=== PATIENT | male | born 1975 | race African-American/Black ===

== ENCOUNTER → 2017-07-21 | Outpatient (CLI) | payer BC ==
[2017-07-21 13:01] LABS: Urine Bacteria NONE SEEN /hpf (None Seen); Urine Blood Negative /uL (Negative); Urine Specific Gravity 1.023 (1.001-1.035); Urine WBC 1 /hpf (0 - 3)
[2017-07-21 13:25] LABS: Albumin 3.8 g/dL (3.4-5.0); BUN/Creatinine Ratio 14.3; Bilirubin, Total 0.6 mg/dL (0.2-1.0); Calcium 9.3 mg/dL (8.5-10.1); Total Protein 8.1 g/dL (6.4-8.2)
== END | disposition home or self-care (01) ==
LOC: LAB 11:52
PROVIDERS: ATTEND Internal Medicine
DX: Z00.01 Encounter for general adult medical examination with abnormal findings (principal); R05 Cough
CPT/HCPCS: 36415; 80053; 80061; 81001; 84443

== ENCOUNTER → 2017-07-28 | Outpatient (CLI) | payer BC ==
[2017-07-28 14:45] LABS: Free T4 (Free Thyroxine) 1.41 ng/dL (0.89-1.76); T3 Total 0.85 ng/mL (0.60-1.81)
== END | disposition home or self-care (01) ==
LOC: LAB 13:38
PROVIDERS: ATTEND Internal Medicine
DX: R94.6 Abnormal results of thyroid function studies (principal); I10 Essential (primary) hypertension; Z87.891 Personal history of nicotine dependence
CPT/HCPCS: 84439; 84480

== ENCOUNTER 2018-08-04 16:28 | Inpatient (IN) | payer BC, OTHER ==
[~2018-08-04] VITALS: Ht 188 cm; Wt 103.4 kg
[2018-08-04 17:32] LABS: Basophils # (auto) 0.1 uL; Basophils % (auto) 1.2 % (0.0-2.0); Eosinophils # (auto) 0.1 uL; Eosinophils % (auto) 1.4 % (0.0-7.0); Hematocrit 40.9 % (41.0-53.0); Hemoglobin 13.4 g/dL (13.5-17.5); Lymphocytes # (auto) 1.7 uL; Lymphocytes % (auto) 30.7 % (10.0-50.0); Mean Corpuscular Hemoglobin 27.6 pg (28.0-32.0); Mean Corpuscular Hgb Conc. 32.9 g/dL (32.0-36.0); Mean Corpuscular Volume 83.8 fL (80.0-100.0); Monocytes # (auto) 0.5 uL; Monocytes % (auto) 8.5 % (0.0-12.0); Neutrophils # (auto) 3.3 uL; Neutrophils % (auto) 58.2 % (37.0-80.0); Nucleated Red Blood Cells % 0.1 %; Platelet Count (auto) 156 10^3/uL (140-450); Red Blood Cells 4.87 10^6/uL (4.5-5.90); Red Cell Distribution Width 15.5 % (11.8-14.3); White Blood Cell 5.6 10^3/uL (4.4-10.8)
[2018-08-04 18:03] LABS: Chloride 110 mmol/L (98-107); Potassium 3.9 mmol/L (3.5-5.1); Sodium 141 mmol/L (136-145)
[2018-08-04 18:07] LABS: Alanine Aminotransferase 46 U/L (16-61); Albumin 3.9 g/dL (3.4-5.0); Anion Gap 5 (5-15); Aspartate Aminotransferase 33 U/L (15-37); BUN/Creatinine Ratio 15.3; Blood Urea Nitrogen 25 mg/dL (7-18); Calcium 8.5 mg/dL (8.5-10.1); Carbon Dioxide 26 mmol/L (21-32); GFR African American 59 mL/min; GFR Non-African American 49 mL/min; Glucose 73 mg/dL (74-106)
[2018-08-04 18:13] LABS: Alkaline Phosphatase 45 U/L (45-117); Bilirubin, Total 0.5 mg/dL (0.2-1.0); Total Protein 7.6 g/dL (6.4-8.2)
[2018-08-04 18:52] LABS: Urine Bacteria NONE SEEN /hpf (None Seen); Urine Blood Negative /uL (Negative); Urine Specific Gravity 1.025 (1.001-1.035); Urine WBC <1 /hpf (0 - 3)
[2018-08-04] MEDS ORDERED: NITROGLYCERIN 0.4 MG SL TAB SL PRN (22:30)
[2018-08-04] MEDS ORDERED: HYDROcodone-ACET 5/325MG TAB PO PRN (22:30)
[2018-08-04] MEDS ORDERED: TEMAZEPAM 15 MG CAP PO PRN (22:30)
[2018-08-04] MEDS ORDERED: cloNIDine HCL 0.1 MG TAB PO PRN (22:30)
[2018-08-04] MEDS ORDERED: FUROSEMIDE 40 MG/4 ML VIAL IV ONE (22:30)
[2018-08-04] MEDS ORDERED: ATORVASTATIN 20 MG TAB PO ONE (22:30)
[2018-08-04] MEDS ORDERED: ONDANSETRON HCL 4 MG/2 ML VIAL IV PRN (22:30)
[2018-08-04] MEDS ORDERED: ACETAMINOPHEN 325 MG TAB PO PRN (22:30)
[2018-08-04] MEDS ORDERED: MORPHINE SULF INJ 2 MG/ML SYRINGE 1ML IV PRN (22:30)
[2018-08-04 23:22] VITALS: BP 165/101
[2018-08-04 23:23] VITALS: BP 165/101
--- NOTE | 2018-08-04 23:23 | NUR ---
Telemetry admit from ER MALI RIVERA admitted to Telemetry unit after SBAR received. Patient oriented to Lou Weber RN primary RN, unit, room, bed, and unit policies regarding patient care and visiting hours. Patient now on continuous telemetry monitoring, tele box # 23 and telemetry reading on arrival to unit is Sinus rhythm. Patient weighed by bedscale and encouraged to call if they need something. All questions and concerns addressed, patient verbalized understanding. Bed is in lowest locked position with bed rails up x2 and call light is within reach of the patient.
[2018-08-05] VITALS (8 sets, daily range): BP systolic 143–162; BP diastolic 91–114
--- NOTE | 2018-08-05 00:45 | NUR ---
Blood pressure reassessed: Patient came to the floor with a blood pressure of 165/101, prn catapres was administered for blood pressure. Blood pressure reassessed at 147/85.
--- NOTE | 2018-08-05 02:57 | NUR ---
Reconcile Meds: Was not able to obtain patients medication they take at home. Instructed patients to bring list of patients medications tomorrow in the morning. Patients agreed and is to bring medications in the morning.
[2018-08-05] MEDS: FUROSEMIDE 40 MG/4 ML VIAL IV SCH ×2 (05:37→18:19)
[2018-08-05] MEDS ORDERED: FUROSEMIDE 20 MG TAB PO SCH (06:00)
[2018-08-05 06:41] LABS: Potassium 3.3 mmol/L (3.5-5.1)
[2018-08-05 06:46] LABS: BUN/Creatinine Ratio 14.2; Calcium 8.6 mg/dL (8.5-10.1)
--- NOTE | 2018-08-05 07:30 | NUR ---
Opening Shift Note Assumed care of patient, awake and alert. No S/S of distress/SOB or chest pain reported at this time. Instructed on POC and to call for assist PRN, call light within reach, IV to right AC patent and benign, will continue to monitor for changes Q1hr and PRN.
[2018-08-05] MEDS: POTASSIUM CHL 20MEQ/100ML 100 ML IV SCH ×2 (09:30→11:30)
[2018-08-05] MEDS: ASPirin 81 mg TAB PO SCH (09:31)
[2018-08-05] MEDS: FAMOTIDINE 20 MG TAB PO SCH ×2 (09:31→21:43)
[2018-08-05] MEDS: CARVEDILOL 12.5 MG TAB PO SCH ×2 (09:32→21:44)
[2018-08-05] MEDS ORDERED: LISINOPRIL 20 MG TAB PO SCH (10:00)
[2018-08-05 10:45] LABS: INR 1.05 (0.9-1.15); Prothrombin Time 11.2 sec (9.27-12.13)
--- NOTE | 2018-08-05 11:08 | NUR ---
MD DR ESCOBEDO AT BESIDE, DISCUSSING POC, CONT CARE
[2018-08-05 12:44] LABS: Alcohol, Urine < 3.0 mg/dL (0-5)
--- NOTE | 2018-08-05 13:10 | NUR ---
UROLOGY NINO GOULD AT BEDSIDE, DISCUSSING POC, CONT CARE
[2018-08-05 13:24] LABS: Amphetamine Screen, Urine NEGATIVE (NEGATIVE); Barbiturate Scree,Urine NEGATIVE (NEGATIVE); Benzodiazephine Screen, Urine NEGATIVE (NEGATIVE); Cocaine Screen, Urine NEGATIVE (NEGATIVE); Opiate Scree,Urine NEGATIVE (NEGATIVE); Phencyclidine Screen, Urine NEGATIVE (NEGATIVE)
--- NOTE | 2018-08-05 13:30 | NUR ---
ACTIVITY PT AMBULATING, NO DISTRESS NOTED, GAIT STEADY, CONT CARE
[2018-08-05 13:59] LABS: Cannabinoid Screen, Urine POSITIVE (NEGATIVE)
[2018-08-05 15:30] LABS: Cholesterol 186 mg/dL (< 200); HDL Cholesterol 55 mg/dL (40-59); LDL Cholesterol 114 mg/dL (< 100); Triglycerides 86 mg/dL (< 150)
[2018-08-05] MEDS ORDERED: hydrALAZINE HCL 25 MG TAB PO ONE (15:45)
[2018-08-05] MEDS ORDERED: METOPROLOL TARTRATE 1MG/1ML-5ML VIAL IV PRN (16:00)
[2018-08-05] MEDS ORDERED: hydrALAZINE HCL 20 MG/ML VL IV PRN (16:00)
[2018-08-05 16:16] LABS: Creatinine, Urine 103 mg/dL (30.0-125.0); Sodium Urine 80 mmol/L (40-220)
--- NOTE | 2018-08-05 19:30 | NUR ---
Opening shift note Patient in bed alert and oriented x 4, verbally coherent, able to make needs known. Patient's respiration even and unlabored, denies pain and discomfort at this time. Patient with ongoing dialysis. Dialysis nurse at bedside. Patient not in acute distress, will continue to monitor. Addendum: 08/05/18 at 2026 by Leonila Mas RN WRONG PATIENT
--- NOTE | 2018-08-05 19:30 | NUR ---
OPENING SHIFT NOTE Patient in bed alert and oriented x 4, verbally coherent able to make needs known. Patient denies pain and discomfort at this time. Plan of care discussed, patient verbalized understanding. All needs attended, will continue to monitor.
--- NOTE | 2018-08-05 19:57 | NUR ---
PT CARE ENDORSED TO NIGHT RODRIGO GATICA PT AWAKE, AXOX4, SITTING UP IN CHAIR, ASYMPTOMATIC, CALL LIGHT WITHIN REACH
[2018-08-05] MEDS: hydrALAZINE HCL 25 MG TAB PO SCH (21:45)
[2018-08-05] MEDS ORDERED: ATORVASTATIN 20 MG TAB PO SCH (22:00)
[2018-08-06 04:51] VITALS: BP 149/115
[2018-08-06 05:50] LABS: Potassium 3.6 mmol/L (3.5-5.1)
[2018-08-06 05:58] LABS: BUN/Creatinine Ratio 17.5; Calcium 9.2 mg/dL (8.5-10.1); Magnesium 2.4 mg/dL (1.6-2.6)
[2018-08-06] MEDS: FUROSEMIDE 40 MG/4 ML VIAL IV SCH (06:00)
--- NOTE | 2018-08-06 07:45 | NUR ---
OPENING SHIFT NOTE ASSUMED CARE OF PATIENT. PATIENT RESTING COMFORTABLY IN BED AT THIS TIME. NO S/S OF DISTRESS OR SOB NOTED. BED IN LOWEST LOCKED POSITION, CALL LIGHT WITHIN REACH. WILL CONTINUE TO MONITOR.
[2018-08-06 09:00] VITALS: BP 140/101
[2018-08-06] MEDS ORDERED: CHOLECALCIFEROL (VITD3) 1,000 UNIT TAB PO SCH (10:00)
[2018-08-06] MEDS ORDERED: LISINOPRIL 20 MG TAB PO SCH (10:00)
[2018-08-06] MEDS ORDERED: SPIRONOLACTONE 25 MG TAB PO SCH (10:00)
[2018-08-06] MEDS: FAMOTIDINE 20 MG TAB PO SCH (10:28)
[2018-08-06] MEDS: hydrALAZINE HCL 25 MG TAB PO SCH (10:28)
[2018-08-06] MEDS: CARVEDILOL 12.5 MG TAB PO SCH (10:29)
[2018-08-06] MEDS: ASPirin 81 mg TAB PO SCH (10:29)
[2018-08-06 13:00] VITALS: BP 144/103
[2018-08-06] MEDS ORDERED: CHOL1000T PO (14:42)
[2018-08-06] MEDS ORDERED: HYDR-4296 PO (14:42)
[2018-08-06] MEDS ORDERED: ASPI81CH43 PO (14:42)
[2018-08-06] MEDS ORDERED: CAR125T PO (14:42)
[2018-08-06] MEDS ORDERED: SPIR25TA88 PO (14:42)
[2018-08-06] MEDS ORDERED: FURO40TA4 PO (14:42)
[2018-08-06] MEDS ORDERED: LISI-646 PO (14:42)
--- NOTE | 2018-08-06 16:50 | NUR ---
DISCHARGE INSTRUCTIONS REVIEWED REVIEWED ALL DISCHARGE INSTRUCTIONS WITH PATIENT AT THIS TIME, ALL QUESTIONS AND CONCERNS ADDRESSED. PATIENT VERBALIZED UNDERSTANDING OF IMPORTANCE OF CALLING WEDNESDAY FOR FOLLOW UP APPOINTMENTS WITH PRIMARY MD AND CARDIOLOGY. IV WAS REMOVED USING CLEAN STERILE TECHNIQUE, CATHETER WAS INTACT UPON REMOVAL AND PRESSURE DRESSING APPLIED AT THIS TIME. PATIENT AWAITING RIDE AT THIS TIME. TELE REMOVED, CLEANED AND RETURNED TO [facility].
[2018-08-06 17:00] VITALS: BP 144/101
--- NOTE | 2018-08-06 18:30 | NUR ---
DISCHARGED PATIENT DISCHARGED HOME AT THIS TIME. SHOWED NO S/S OF DISTRESS OR SOB UPON DISCHARGE.
[2018-08-07] MEDS ORDERED: ASPirin 81 mg TAB PO SCH (10:00)
[2018-08-08 09:47] LABS: Hepatitis B Surface Antibody Negative
[2018-08-08 10:26] LABS: Hepatitis A Total Antibody Negative
[2018-08-08 12:42] LABS: Hepatitis B Core Total AB Negative; Hepatitis B Surface Antigen Negative (Negative); Hepatitis C Antibody Negative (Negative)
== END 2018-08-06 18:25 | disposition home or self-care (01) | DRG 291 ==
LOC: ER 16:31 → TELE-WESTW 22:30
PROVIDERS: ADMIT Nurse Practitioner; ATTEND Internal Medicine
DX: I13.0 Hypertensive heart and chronic kidney disease with heart failure and stage 1 through stage 4 chronic kidney disease, or unspecified chronic kidney disease (principal); I50.43 Acute on chronic combined systolic (congestive) and diastolic (congestive) heart failure; N17.9 Acute kidney failure, unspecified; F17.210 Nicotine dependence, cigarettes, uncomplicated; F12.90 Cannabis use, unspecified, uncomplicated; E55.9 Vitamin D deficiency, unspecified; I42.0 Dilated cardiomyopathy; I43 Cardiomyopathy in diseases classified elsewhere; R07.89 Other chest pain; E87.6 Hypokalemia; J44.9 Chronic obstructive pulmonary disease, unspecified; N18.3 Chronic kidney disease, stage 3 (moderate); R32 Unspecified urinary incontinence; Z82.49 Family history of ischemic heart disease and other diseases of the circulatory system; Z91.14 Patient's other noncompliance with medication regimen; Z83.3 Family history of diabetes mellitus; Z90.49 Acquired absence of other specified parts of digestive tract
CPT/HCPCS: 36415; 71045; 71275; 76775; 80048; 80053; 80061; 80307; 81001; 82306; 82570; 83036; 83735; 83880; 83970; 84154; 84300; 84439; 84443; 84484; 85025; 85610; 85730; 86704; 86706; 86708; 86803; 87340; 93005; 93306; 96361; 96374; G0378; J3480